=== PATIENT | male | born 1970 | race Caucasian/White ===

== ENCOUNTER 2017-05-29 09:56 | Emergency (ER) | payer SELFPAY ==
[~2017-05-29] VITALS: Ht 190.5 cm; Wt 95.2 kg
[~2017-05-29 09:56] MED LIST: ASPIRIN81 MG PO; KEFLEX500 M1 PO; NAPROSYN500 MG PO; PEN-VEE K PO; VOLTAREN50 MG PO
== END 2017-05-29 10:39 | disposition home or self-care (01) ==
LOC: CFTX 09:56 → CED 09:56 → CFTX 10:33
DX: K02.9 Dental caries, unspecified (principal); K04.7 Periapical abscess without sinus; F17.210 Nicotine dependence, cigarettes, uncomplicated; Z79.899 Other long term (current) drug therapy
CPT/HCPCS: 99283